=== PATIENT | female | born 1940 | race Caucasian/White ===

== ENCOUNTER → 2021-07-23 15:53 | Outpatient (BNVA) | payer MEDICARE, OTHER, SELFPAY | PROVIDERS: Family Provider Family Medicine; PCP Internal Medicine; Visit Provider Internal Medicine | DX: I25.10 Atherosclerotic heart disease of native coronary artery without angina pectoris (principal); I10 Essential (primary) hypertension; E78.5 Hyperlipidemia, unspecified; E11.9 Type 2 diabetes mellitus without complications; Z98.61 Coronary angioplasty status; Z79.84 Long term (current) use of oral hypoglycemic drugs | CPT/HCPCS: 36415; 80048; 83880; 99214 ==

== ENCOUNTER 2021-08-04 19:53 | Emergency (ER) | payer MEDICARE, OTHER, SELFPAY ==
[2021-08-04 20:17] VITALS: BP 156/75; PULSE 90; RESP 16; TEMP 36.3; O2SAT 94
--- NOTE | 2021-08-04 20:42 | XRR_ITS ---
PROCEDURE INFORMATION: Exam: XR Left Elbow Exam date and time: 08/04/2021 8:52 PM Age: 81 years old Clinical indication: Injury or trauma; Fall; Blunt trauma (contusions or hematomas); Left; Patient HX: Patient fell at home and hit elbow. C/O pain with swelling to posterior side of elbow. TECHNIQUE: Imaging protocol: XR Left elbow. Views: 3 or more views. COMPARISON: No relevant prior studies available. FINDINGS: Bones/joints: Normal. Soft tissues: Minimal distal triceps tendon degenerative calcification. Minimal degenerative calcification of the proximal radial and ulnar collateral ligaments suspected. XR/XR elbow LT min 3V* [id number] IMPRESSION: 1. No acute findings. 2. Minimal distal triceps tendon degenerative calcification. 3. Minimal degenerative calcification of the proximal radial and ulnar collateral ligaments suspected.
--- NOTE | 2021-08-04 21:03 | W.ED.EXTPRO ---
HPI - Extremity Problem General: Chief complaint: Extremity Injury, Upper Stated complaint: Fall Left Arm Injury Time Seen by Provider: 08/04/21 20:42 Source: patient Mode of arrival: ambulatory Limitations: no limitations History of Present Illness: 81-year-old female who states that she tripped and fell roughly 2 hours ago. States she fell straight onto her left elbow onto linoleum she does have a contusion states she has pain that she rates a 2 out of 10 she has full range of motion with minimal pain denies any other injuries denies hitting her head. Associated symptoms: Deny chest pain, fever(s) or rash Review of Systems Const: Denies: fever(s), chills, body aches or change in appetite Eyes: Denies: blurry vision or eye discomfort ENMT: Denies: throat pain or dental pain Card: Denies: chest pain Resp: Denies: dyspnea GI: Denies: abdominal pain, nausea, vomiting or diarrhea : Denies: dysuria Musc: Reports: extremity pain; Denies: neck pain or back pain Skin/Breast: Denies: rash Neuro: Denies: headache(s) Psych: Denies: depression Emile/Lymph: Denies: easy bruising All/Imm: Denies: urticaria PFSH ED PFSH: Medical History ASHD (arteriosclerotic heart disease) Diabetes Dyslipidemia (high LDL; low HDL) HTN (hypertension) Surgical History S/P PTCA (percutaneous transluminal coronary angioplasty) Family History Other CAD (coronary artery disease) Cancer Diabetes Hypertension Social History Smoking and tobacco status: never smoked Alcohol intake: never Household members: spouse Marital status: Physical Exam Const: COMMON NORMALS: no acute distress, patient oriented x3 and healthy appearing HENMT: COMMON NORMALS: normocephalic and atraumatic HEAD & SCALP: normocephalic and atraumatic Eye: COMMON NORMALS: Equal, round and reactive pupils present and EOMs intact bilaterally PUPIL: Yes Equal, round and reactive pupils present Neck/C-Spine: COMMON NORMALS: full ROM and supple Chest: COMMONS NORMALS: normal inspection of the chest and normal palpation of entire chest wall Resp: COMMON NORMALS: normal respiratory effort, No retractions, No use of accessory muscles and clear to auscultation bilaterally AUSCULTATION: clear to auscultation bilaterally Cardio: COMMON NORMALS: regular rate, regular rhythm and No murmurs present (Cardio) RATE: regular rate RHYTHM: regular rhythm GI: COMMON NORMALS: Normal to inspection, nondistended, normoactive bowel sounds present, Soft to palpation, non-tender and no masses PALPATION: Yes Soft to palpation Extremity: NARRATIVE EXTREMITY EXAM: Contusion to left elbow no obvious deformity he has full range of motion without pain Neuro: COMMON NORMALS: patient oriented x3, moves all extremities and no focal motor deficits Psych: COMMON NORMALS: mental status grossly normal, Normal thought process present and cooperative THOUGHT PROCESS: Normal thought process present Skin: COMMON NORMALS: no rashes or lesions noted and no wounds GENERAL SKIN EXAM: no rashes or lesions noted Course Vital Signs: Vital signs: Vital Signs Temperature 97.4 F L 08/04/21 20:17 Pulse Rate 90 08/04/21 20:17 Respiratory Rate 16 08/04/21 20:17 Blood Pressure 156/75 08/04/21 20:17 Pulse Oximetry 94 08/04/21 20:17 MDM - Extremity (Nontraumatic) Medical Decision Making Patient presents with an elbow contusion from a fall no signs of fracture she has full range of motion no other injuries she is stable for discharge follow-up PCP and return if worsening. Discharge Plan Discharge Patient Disposition: Home Clinical Impression: Fall, Contusion of elbow, left Condition: Stable Prescriptions: No Action amlodipine 5 mg tablet 5 mg PO DAILY 0RF nitroglycerin [Nitrostat] 0.4 mg tablet, sublingual 0.4 mg SUBLINGUAL Q5M PRN0RF Rx Instructions: do not exceed 3 doses per episode atorvastatin 40 mg tablet 40 mg PO DAILY 0RF clopidogrel 75 mg tablet 75 mg PO DAILY 0RF aspirin [Aspir-81] 81 mg tablet,delayed release (DR/EC) 81 mg PO DAILY 0RF montelukast 10 mg tablet 10 mg PO DAILY 0RF metoprolol succinate 25 mg tablet extended release 24 hr 50 mg PO DAILY 0RF metformin 1,000 mg tablet 1,500 mg PO BID 0RF cetirizine [Zyrtec] 10 mg tablet 10 mg PO DAILY PRN0RF pioglitazone 45 mg tablet 45 mg PO DAILY 0RF furosemide [Lasix] 20 mg tablet 20 mg PO BID Qty: 180 3RF Discharge Orders: Discharge ED (Routine); Ordered 08/04/21 Ordered By: Sima Green Referrals: Marco Ruiz MD [Primary Care Provider] - Discharge Diet: Advance as tolerated Discharge Activity: Resume usual activity Patient Instructions: Contusion in Adults (ED) Coding Level of Care Code ED Mine Utility Operator for Kayden Becker
== END 2021-08-04 21:28 | disposition home or self-care (01) ==
PROVIDERS: Emergency Provider Emergency Medicine; PCP Internal Medicine
DX: S50.02XA Contusion of left elbow, initial encounter (principal); W01.0XXA Fall on same level from slipping, tripping and stumbling without subsequent striking against object, initial encounter
CPT/HCPCS: 73080; 99283

== ENCOUNTER → 2021-10-22 15:00 | Outpatient (BNVA) | payer MEDICARE, OTHER, SELFPAY | PROVIDERS: PCP Internal Medicine; Visit Provider Internal Medicine | DX: I25.10 Atherosclerotic heart disease of native coronary artery without angina pectoris (principal); I10 Essential (primary) hypertension; E78.5 Hyperlipidemia, unspecified; E11.9 Type 2 diabetes mellitus without complications; Z79.84 Long term (current) use of oral hypoglycemic drugs; Z98.61 Coronary angioplasty status | CPT/HCPCS: 36415; 80048; 83880; 99213; 99214 ==

== ENCOUNTER 2022-01-04 14:56 | Outpatient (CLI) | payer MEDICARE, OTHER, SELFPAY ==
--- NOTE | 2022-01-04 15:15 | USCV_ITS ---
Della Dennis Age: 81 Gender: F : 1940 Exam Date: 01/04/2022 15:41 Ordering Phys: Leandro Perales M.D ([email or web address]) Technologist: Carmelina Wiseman [place] [facility] [place]: sob. edema BP: / HR: 76 Rhythm: Sinus Technical Quality: Good MEASUREMENTS (Male / Female) Normal Values 2D ECHO LV Diastolic Diameter PLAX 3.8 cm 4.2 - 5.9 / 3.9 - 5.3 cm LV Systolic Diameter PLAX 2.5 cm IVS Diastolic Thickness 1.6 cm 0.6 - 1.0 / 0.6 - 0.9 cm IVS Systolic Thickness 2.0 cm LVPW Diastolic Thickness 0.9 cm 0.6 - 1.0 / 0.6 - 0.9 cm LVPW Systolic Thickness 1.7 cm LVOT Diameter 2.1 cm LV Ejection Fraction 2D Teich 63.7 % LV Ejection Fraction MOD 2C 77.6 % LV Ejection Fraction 2C AL 80.3 % LA Diameter 3.7 cm LA Width 2.8 cm LA Height 5.2 cm RA Width 2.9 cm RA Height 4.5 cm Aorta at Sinotubular Diameter 2.6 cm IVC Diameter 1.2 cm M-MODE MV E Point Septal Separation 0.6 cm DOPPLER AV Peak Velocity 117.0 cm/s LVOT Peak Velocity 113.0 cm/s AV Area Cont Eq vti 3.3 cm squared AV Area Cont Eq pk 3.3 cm squared MV Peak Velocity 141.0 cm/s MV Area PHT 3.1 cm squared Mitral E to A Ratio 0.6 MV E' Velocity 43.0 cm/s Mitral E to MV E' Ratio 10.1 Mitral E to LV E' Lateral Ratio 14.0 Mitral E to LV E' Septal Ratio 7.9 TR Peak Velocity 186.0 cm/s TR Peak Gradient 13.8 mmHg Right Atrial Pressure 3.0 mmHg Pulmonary Artery Systolic Pressu 16.8 mmHg PV Peak Velocity 94.0 cm/s RV Acceleration Time 0.1 s RV Ejection Time 0.3 s RV AcT/ET 0.3 FINDINGS Left Ventricle Ventricle is normal in size. LV systolic function is normal with EF of 60 to 65%. No regional wall motion abnormalities are seen. Grade 1 diastolic dysfunction Right Ventricle RV is normal in size and function Right Atrium Normal in size Left Atrium Normal in size Mitral Valve Grossly normal. Trace mitral regurgitation Aortic Valve Structurally normal aortic valve. No significant stenosis or regurgitation. Tricuspid Valve Mild tricuspid regurgitation. Insufficient TR jet to calculate RVSP Pulmonic Valve Not well-visualized Pericardium Normal Aorta Normal in size IVC IVC appears to be normal CONCLUSIONS LV systolic function is normal with EF of 60 to 65%. Grade 1 diastolic dysfunction Trace mitral regurgitation Mild tricuspid regurgitation No comparison studies are available Leandro Perales MD (Electronically Signed) Final Date: 05 January 2022 17:19 S
== END 2022-01-04 14:57 | disposition home or self-care (01) ==
PROVIDERS: PCP Internal Medicine; Visit Provider Internal Medicine
DX: R06.02 Shortness of breath (principal); R60.0 Localized edema; I08.1 Rheumatic disorders of both mitral and tricuspid valves
CPT/HCPCS: 93306

== ENCOUNTER → 2022-05-11 16:32 | Outpatient (BNVA) | payer MEDICARE, OTHER, SELFPAY | PROVIDERS: PCP Internal Medicine; Visit Provider Nurse Practitioner Family | DX: I10 Essential (primary) hypertension (principal); I25.10 Atherosclerotic heart disease of native coronary artery without angina pectoris | CPT/HCPCS: 36415; 80048; 83880; 99214 ==

== ENCOUNTER 2022-05-31 12:38 | Observation (INO) | payer MEDICARE, OTHER, SELFPAY ==
[2022-05-31] VITALS (17 sets, daily range): BP systolic 115–148; BP diastolic 67–80; PULSE 79–96; RESP 14–23; TEMP 36.4–37.2; O2SAT 90–96; BMI 28.3
--- NOTE | 2022-05-31 12:51 | W.ED.GENADLT ---
HPI - General Adult General: Chief complaint: Weakness Stated complaint: weakness, flu like symptoms Time Seen by Provider: 05/31/22 12:50 History of Present Illness: Ms. Dennis is an 82-year-old lady with history of hypertension, hyperlipidemia, diabetes, history of PCI for CAD, dementia presenting to the emergency department accompanied by her daughter for generalized illness. She reports gradual onset approximately 1 week ago. She endorses cough which is productive and green sputum in addition to generalized weakness, malaise, poor p.o. intake, and bilateral thigh region aching. Intensity symptoms moderate. No other specific changes in health, exacerbating, or alleviating factors identified. Onset (ago): day(s) Location: chest and lower extremity Severity: moderate Quality: aching Pain Consistency: constant Relieving factors: none Exacerbating factors: movement Associated symptoms: Reports cough and weakness Review of Systems General: Reports: 10 or more systems reviewed and unremarkable except in HPI and below PFSH ED PFSH: Medical History (Updated 06/02/22 @ 00:01 by ANDREZ Rea) Abnormal CPK ASHD (arteriosclerotic heart disease) Dehydration Diabetes Dyslipidemia (high LDL; low HDL) HTN (hypertension) Hypokalemia Rhabdomyolysis Transaminitis Surgical History S/P PTCA (percutaneous transluminal coronary angioplasty) Family History Other CAD (coronary artery disease) Cancer Diabetes Hypertension Social History Smoking and tobacco status: never smoked Alcohol intake: never Household members: spouse Marital status: Physical Exam Const: COMMON NORMALS: alert GENERAL APPEARANCE: cooperative and well developed HENMT: COMMON NORMALS: normocephalic and atraumatic HEAD & SCALP: normocephalic and atraumatic Eye: COMMON NORMALS: conjunctivae normal CONJUNCTIVA: Yes conjunctivae normal SCLERA: sclerae normal Neck/C-Spine: COMMON NORMALS: supple GENERAL: Yes trachea midline Resp: COMMON NORMALS: clear to auscultation bilaterally EFFORT & INSPECTION: Yes able to speak in complete sentences AUSCULTATION: clear to auscultation bilaterally Cardio: COMMON NORMALS: regular rate and regular rhythm RATE: regular rate RHYTHM: regular rhythm GI: COMMON NORMALS: Soft to palpation PALPATION: Yes Soft to palpation and No Tenderness to palpation present (GI) Extremity: GENERAL: Yes normal exam except as noted and No edema Neuro: COMMON NORMALS: moves all extremities SENSORIUM/ORIENTATION: Yes alert and Yes Orientation impaired Psych: COMMON NORMALS: mental status grossly normal and Normal thought process present THOUGHT PROCESS: Normal thought process present Course Vital Signs: Vital signs: Vital Signs Temperature 98.8 F 06/01/22 12:23 Pulse Rate 65 06/01/22 12:23 Respiratory Rate 15 06/01/22 12:23 Blood Pressure 114/61 06/01/22 12:23 Pulse Oximetry 94 06/01/22 12:23 Oxygen Delivery Me thod 06/01/22 08:00 MDM - General Adult Medical Decision Making 82-year-old lady presenting with respiratory symptoms. Patient has altered mental status, reportedly baseline, with no focal neurologic deficits appreciated. EKG notable for sinus rhythm with occasional PVC, normal axis and short MD interval, no STEMI. Labs demonstrate no leukocytosis, hemoglobin mildly decreased though no recent comparison available. Metabolic panel with likely dehydration including hypokalemia and hyponatremia. Mild transaminitis and CK is elevated. Negative range 2-hour delta troponin. Viral panel and urine are pending. Physical exam reveals no skin changes or other acute abnormalities associated with the patient's region of myalgias. Distal CMS is intact. Chest x-ray with no lobar consolidation or pneumothorax. During ED course patient treated with potassium replenishment and IV fluids. Most likely etiology of patient's symptoms is dehydration with evidence of rhabdomyolysis without certain etiology, perhaps a viral myositis is present. The results of ED evaluation were discussed with the patient including plan for admission due to requirement for level of care not available if discharged to prevent significant worsening/deterioration. Patient agreeable with plan. Discussed with hospitalist service who was agreeable to admit patient. Medical Records I reviewed the patient's medical records. Lab Data I reviewed the patient's lab results. 06/01/22 05:13 06/01/22 05:13 Radiology Impressions Chest X-Ray 05/31/22 13:06 IMPRESSION: No sign of pneumonia. Laboratory Results WBC 7.1 10^3/uL (4.0-10.0) 05/31/22 13:45 RBC 3.35 10^6/uL (4.1-5.3) L 05/31/22 13:45 Hgb 10.3 g/dL (11.5-15.3) L 05/31/22 13:45 Hct 32.2 % (37.0-47.0) L 05/31/22 13:45 MCV 96.1 fl (81-99) 05/31/22 13:45 MCH 30.7 pg (28.0-34.0) 05/31/22 13:45 MCHC 32.0 g/dL (30.0-36.0) 05/31/22 13:45 RDW 13.0 % (12.1-15.1) 05/31/22 13:45 Plt Count 221 10^3/cmm (130-400) 05/31/22 13:45 MPV 11.5 fL (7.4-10.4) H 05/31/22 13:45 Neut % (Auto) 58.0 % 05/31/22 13:45 Lymph % (Auto) 23.8 % 05/31/22 13:45 [place] % (Auto) 16.1 % 05/31/22 13:45 Eos % (Auto) 1.1 % 05/31/22 13:45 Baso % (Auto) 0.4 % 05/31/22 13:45 Neut # (Auto) 4.12 10^3/uL (1.8-7.7) 05/31/22 13:45 Lymph # (Auto) 1.7 10^3/uL (0.8-4.8) 05/31/22 13:45 [place] # (Auto) 1.1 10^3/uL (0.2-0.9) H 05/31/22 13:45 Eos # (Auto) 0.1 10^3/uL (0.0-0.8) 05/31/22 13:45 Baso # (Auto) 0.0 10^3/uL (0.0-0.1) 05/31/22 13:45 Nucleated RBC % (auto) 0 % 05/31/22 13:45 Nucleated RBCs # 0.0 /100WBC 05/31/22 13:45 ESR 67 mm/hr (0-15) H 05/31/22 13:45 Sodium 135 mmol/L (136-145) L 05/31/22 13:45 Potassium 3.2 mmol/L (3.5-5.1) L 05/31/22 13:45 Chloride 96 mmol/L (98-107) L 05/31/22 13:45 Carbon Dioxide 25 mmol/L (22-29) 05/31/22 13:45 Anion Gap 17.2 (5-19) 05/31/22 13:45 BUN 21 mg/dL (8-23) 05/31/22 13:45 Creatinine 0.7 mg/dL (0.5-0.9) 05/31/22 13:45 GFR Calculation Not Reportable 05/31/22 13:45 Glucose 149 mg/dL (65-115) H 05/31/22 13:45 Calculated Osmolality 286 mOsm/kg (285-295) 05/31/22 13:45 Calcium 9.1 mg/dL (8.5-10.5) 05/31/22 13:45 Total Bilirubin 0.4 mg/dL (0.15-1.2) 05/31/22 13:45 AST 79 U/L (0-32) H 05/31/22 13:45 ALT 39 U/L (0-33) H 05/31/22 13:45 Alkaline Phosphatase 54 U/L (35-105) 05/31/22 13:45 Creatine Kinase 4512 U/L (26-192) H* 05/31/22 13:45 Troponin T Baseline 16 ng/L (0-10) H 05/31/22 13:45 Total Protein 6.9 g/dL (6.6-8.7) 05/31/22 13:45 Albumin 3.3 g/dL (3.5-5.2) L 05/31/22 13:45 Globulin 3.6 g/dL (1.3-4.6) 05/31/22 13:45 Procalcitonin 0.15 ng/mL (0-0.5) 05/31/22 13:45 TSH 1.32 uIU/mL (0.27-4.20) 05/31/22 13:45 Urine Color Yellow (Yellow) 05/31/22 14:36 Urine Appearance Hazy (CLEAR) A 05/31/22 14:36 Urine pH 5 (5-7) 05/31/22 14:36 Ur Specific [place] 1.020 (1.005-1.030) 05/31/22 14:36 Urine Protein Neg (Negative) 05/31/22 14:36 Urine Glucose (UA) Norm (Normal) 05/31/22 14:36 Urine Ketones 1+ (Negative) H 05/31/22 14:36 Urine Blood 2+ (Negative) H 05/31/22 14:36 Urine Nitrate Negative (Negative) 05/31/22 14:36 Urine Bilirubin Neg (Negative) 05/31/22 14:36 Urine Urobilinogen Norm mg/dL (Negative) 05/31/22 14:36 Ur Leukocyte Esterase 1+ (Negative) H 05/31/22 14:36 Urine RBC 0-4 /hpf (0-2) H 05/31/22 14:36 Urine WBC 10-15 /hpf (0-5) H 05/31/22 14:36 Ur Squamous Epith Cells 5-10 /hpf (0-5) H 05/31/22 14:36 Amorphous Sediment 2+ /hpf 05/31/22 14:36 Urine Bacteria 1+ /hpf (NONE) H 05/31/22 14:36 Urine Mucus 2+ /hpf 05/31/22 14:36 Nasal Influ A H1 2008 PCR Not detected (NOT DETECT) 05/31/22 15:03 Adenovirus (PCR) Not detected (NOT DETECT) 05/31/22 15:03 C. pneumoniae DNA (PCR) Not detected (NOT DETECT) 05/31/22 15:03 Coronavirus 229E (PCR) Not detected (NOT DETECT) 05/31/22 15:03 Human Metapneumovir PCR Not detected (NOT DETECT) 05/31/22 15:03 Influenza A (H1) PCR Not detected (NOT DETECT) 05/31/22 15:03 Influenza A (H3) PCR Not detected (NOT DETECT) 05/31/22 15:03 Influenza Type A (PCR) Not detected (NOT DETECT) 05/31/22 15:03 Influenza Type B (PCR) Not detected (NOT DETECT) 05/31/22 15:03 M. pneumoniae (PCR) Not detected (NOT DETECT) 05/31/22 15:03 Parainfluenza 1 (PCR) Not detected (NOT DETECT) 05/31/22 15:03 Parainfluenza 2 (PCR) Not detected (NOT DETECT) 05/31/22 15:03 Parainfluenza 3 (PCR) Not detected (NOT DETECT) 05/31/22 15:03 Parainfluenza 4 (PCR) Not detected (NOT DETECT) 05/31/22 15:03 RSV Type A (PCR) Not detected (NOT DETECT) 05/31/22 15:03 RSV Type B (PCR) Not detected (NOT DETECT) 05/31/22 15:03 Entero/Rhino (PCR) Not detected (NOT DETECT) 05/31/22 15:03 SARS-CoV-2 (PCR) Not detected (NOT DETECT) 05/31/22 15:03 Discharge Plan Discharge Patient Disposition: Admitted As Inpatient Admit Provider: Jose Petty Clinical Impression: Rhabdomyolysis, Dehydration, Hypokalemia, Transaminitis Condition: Stable Coding Level of Care Code ED Threshing Machine Operator for Kayden Becker
--- NOTE | 2022-05-31 13:06 | XRR_ITS ---
PROCEDURE INFORMATION: Exam: XR Chest Exam date and time: 05/31/2022 1:20 PM Age: 82 years old Clinical indication: Cough; Prior surgery; Surgery type: Stents; Patient HX: Flu like symptoms TECHNIQUE: Imaging protocol: Radiologic exam of the chest. Views: 1 view. COMPARISON: No relevant prior studies available. FINDINGS: Lungs: No focal peripheral lung consolidation, air bronchogram formation, or silhouette sign. Pleural spaces: No pleural effusion or pneumothorax. Heart/Mediastinum: The cardiac silhouette is not enlarged. The mediastinal contours are normal. Bones/joints: There are multilevel bridging osteophytes in the spine. XR/XR chest 1V portable [id number] IMPRESSION: No sign of pneumonia.
[2022-05-31] MEDS: sodium chloride 0.9% 1,000 ML 999 ML IV (13:43)
--- NOTE | 2022-05-31 13:44 | ECG_ITS ---
[facility] Test Date: 2022-05-31 Pat Name: Della Dennis Department: Room: Gender: Female Aircraft Metalsmith: : 1940 Requested By: Abdoul Neal Order Number: [id number] Eva MD: Leandro Perales M.D. Measurements Intervals [place] Rate: 82 P: 16 NM: 119 QRS: 29 QRSD: 81 T: 110 QT: 377 QTc: 442 Interpretive Statements SINUS RHYTHM WITH SHORT NM INTERVAL WITH OCCASIONAL VENTRICULAR PREMATURE COMPLEXES LOW QRS VOLTAGE IN PRECORDIAL LEADS [QRS DEFLECTION < 1.0 mV IN CHEST LEADS] POSSIBLE ANTERIOR MYOCARDIAL INFARCTION , PROBABLY OLD [30 ms Q WAVE IN V3/V4, OR R < 0.2 mV IN V4] No previous ECG available for comparison Electronically Signed On 05-31-2022 14:26:48 SURFACE ROOM SHOP OPTICIAN by Leandro Perales M.D. [id number]
[2022-05-31 13:56] LABS: Basophils % 0.4 %; Eosinophils # 0.1 10^3/uL (0.0-0.8); Eosinophils % 1.1 %; Hematocrit 32.2 % (37.0-47.0); Hemoglobin 10.3 g/dL (11.5-15.3); Lymphocytes # 1.7 10^3/uL (0.8-4.8); Lymphocytes % 23.8 %; Mean Corpuscular Hemoglobin 30.7 pg (28.0-34.0); Mean Corpuscular Volume 96.1 fl (81-99); Mean Platelet Volume 11.5 fL (7.4-10.4); Monocytes # 1.1 10^3/uL (0.2-0.9); Monocytes % 16.1 %; Neutrophils # 4.12 10^3/uL (1.8-7.7); Nucleated Red Blood Cells % 0 %; Platelet Count 221 10^3/cmm (130-400); Red Blood Count 3.35 10^6/uL (4.1-5.3); White Blood Count 7.1 10^3/uL (4.0-10.0)
[2022-05-31 14:17] LABS: Troponin(5th) Baseline 16 ng/L (0-10)
[2022-05-31 14:27] LABS: Alanine Aminotransferase 39 U/L (0-33); Albumin Level 3.3 g/dL (3.5-5.2); Alkaline Phosphatase 54 U/L (35-105); Aspartate Amino Transferase 79 U/L (0-32); Blood Urea Nitrogen 21 mg/dL (8-23); Calcium 9.1 mg/dL (8.5-10.5); Carbon Dioxide 25 mmol/L (22-29); Chloride 96 mmol/L (98-107); Globulin 3.6 g/dL (1.3-4.6); Glucose 149 mg/dL (65-115); Osmolality Calculated 286 mOsm/kg (285-295); Sodium 135 mmol/L (136-145); Thyroid Stimulating Hormone 1.32 uIU/mL (0.27-4.20); Total Bilirubin 0.4 mg/dL (0.15-1.2); Total Protein 6.9 g/dL (6.6-8.7)
[2022-05-31 14:31] LABS: Anion Gap 17.2 (5-19); Potassium 3.2 mmol/L (3.5-5.1)
[2022-05-31] MEDS: potassium chloride ER 20 mEq Tablet 40 MEQ PO (14:37)
[2022-05-31 14:43] LABS: Creatine Phosphokinase 4512 U/L (26-192)
[2022-05-31 14:56] LABS: Urine Appearance Hazy (CLEAR); Urine Color Yellow (Yellow)
[2022-05-31 14:57] LABS: Add Urine Microscopic? YES; Amorphous Sediment Urine 2+ /hpf; Bacteria Urine 1+ /hpf; Bilirubin Urine Neg (Negative); Blood Urine 2+ (Negative); Glucose Urine UA Norm (Normal); Ketones Urine 1+ (Negative); Leukocyte Esterase Urine 1+ (Negative); Mucus Urine 2+ /hpf; Nitrate Urine Negative (Negative); Protein Urine Neg (Negative); RBC Urine 0-4 /hpf (0-2); Urobilinogen Urine Norm (Negative); pH Urine 5 (5-7)
[2022-05-31 14:58] LABS: Add Urine Culture? Yes
--- NOTE | 2022-05-31 15:06 | ECG_ITS ---
[facility] Test Date: 2022-05-31 Pat Name: Della Dennis Department: Room: Gender: Female Hand Alterations Seamstress: : 1940 Requested By: Abdoul Neal Order Number: [id number] Eva MD: Leandro Perales M.D. Measurements Intervals [place] Rate: 83 P: 14 [place]: 122 QRS: 37 QRSD: 81 T: 132 QT: 357 QTc: 421 Interpretive Statements SINUS RHYTHM WITH OCCASIONAL VENTRICULAR PREMATURE COMPLEXES LOW QRS VOLTAGE IN PRECORDIAL LEADS [QRS DEFLECTION < 1.0 mV IN CHEST LEADS] NONSPECIFIC ST & T-WAVE ABNORMALITY Compared to ECG 05/31/2022 13:44:11 Ventricular premature complex(es) now present T-wave abnormality now present Short [place] interval no longer present Myocardial infarct finding no longer present Electronically Signed On 05-31-2022 16:45:00 COMBINING MACHINE OPERATOR by Leandro Perales M.D. [id number]
[2022-05-31 15:20] LABS: Erythrocyte Sedimentation Rate 67 mm/hr (0-15)
--- NOTE | 2022-05-31 15:37 | PM.HP ---
Providers/Chief Complaint Primary Care Provider: Marco Ruiz MD Chief Complaint: weakness, flu like symptoms History of Present Illness Della Dennis is a 82 year old female presenting from home with chief complaint generalized weakness, she is endorsing proximal muscle weakness, she has not endorsed any chest pain, fever nausea vomiting diarrhea or recent falls. She is independently living at home with her daughter. Does not use oxygen No history of polymyalgia rheumatica, fibromyalgia, patient is in good health, takes metformin for diabetes on atorvastatin as well In the ER she has been diagnosed with mild muscle injury I will hold her atorvastatin Review of Systems Const: Denies: fever(s) Eyes: Denies: change in vision ENMT: Denies: throat pain Card: Denies: chest pain Resp: Denies: dyspnea GI: Denies: abdominal pain : Denies: flank pain Musc: Denies: neck pain Skin/Breast: Denies: rash Neuro: Denies: headache(s) Psych: Denies: anxiety Endo: Denies: polyuria Emile/Lymph: Denies: easy bruising All/Imm: Denies: urticaria Medications/Allergies Home Medications Medication Instructions Recorded Confirmed Last Taken Type amlodipine 5 mg tablet 5 mg PO DAILY 08/29/19 05/11/22 Unknown History aspirin 81 mg tablet,delayed 81 mg PO DAILY 08/29/19 05/11/22 Unknown History release (Aspir-) atorvastatin 40 mg tablet 40 mg PO DAILY 08/29/19 05/11/22 Unknown History clopidogrel 75 mg tablet 75 mg PO DAILY 08/29/19 05/11/22 Unknown History montelukast 10 mg tablet 10 mg PO DAILY 08/29/19 05/11/22 Unknown History nitroglycerin 0.4 mg sublingual 0.4 mg sublingual Q5M PRN 08/29/19 05/11/22 Unknown History tablet (Nitrostat) metoprolol succinate 25 mg 50 mg PO DAILY 07/24/20 05/11/22 Unknown History tablet,extended release 24 hr metformin 1,000 mg tablet 1,500 mg PO BID 07/23/21 05/11/22 Unknown History pioglitazone 45 mg tablet 45 mg PO DAILY 07/23/21 05/11/22 Unknown History furosemide 20 mg tablet (Lasix) 20 mg PO BID #180 tabs 07/29/21 05/11/22 Unknown Rx donepezil 5 mg tablet 5 mg PO DAILY 05/11/22 05/11/22 Unknown History Allergies Allergy/AdvReac Type Severity Reaction Status Date / Time No Known Allergies Allergy Verified 10/22/21 15:28 PFSH Acute PFSH: Medical History (Updated 05/31/22 @ 19:43 by Jose Petty MD) ASHD (arteriosclerotic heart disease) Diabetes Dyslipidemia (high LDL; low HDL) HTN (hypertension) Surgical History S/P PTCA (percutaneous transluminal coronary angioplasty) Family History Other CAD (coronary artery disease) Cancer Diabetes Hypertension Social History Smoking and tobacco status: never smoked Alcohol intake: never Household members: spouse Marital status: Vitals/I&O/Wt Last Vital Signs Temp 99.0 F 05/31/22 12:49 Pulse 86 05/31/22 12:49 Resp 19 H 05/31/22 12:49 BP 125/75 05/31/22 12:49 Pulse Ox 90 05/31/22 12:49 Weight last 48 hrs Weight 77.111 kg Physical Exam Narrative: Awake alert Nonfocal neuro exam GCS 15 Euvolemic Pleasant cooperative Currently on room air S1, S2 Abdomen soft GCS 15 EOMI, PERRLA No significant proximal weakness on clinical exam Data 05/31/22 13:45 05/31/22 13:45 A&P Assessment and plan (1) Abnormal CPK: (2) Rhabdomyolysis: (3) Dehydration: (4) Hypokalemia: (5) Transaminitis: (6) Diabetes: Plan Mild muscle injury Mild rhabdomyolysis Continue IV fluids Discontinue atorvastatin Check ESR and MERE No clinical signs of polymyalgia rheumatica or temporal arteritis Normal TSH Dehydration with hypokalemia, Electrolytes replenished continue IV fluids overnight Full code Anticipate discharge within 48 hours Abnormal UA with bacteriuria Check urine culture Diabetic: Mild sliding scale Attestations Medical Necessity Statement*: Anticipating within 48 hours Diagnoses Abnormal CPK R74.8 Rhabdomyolysis M62.82 Dehydration E86.0 Hypokalemia E87.6 Transaminitis R74.01 Diabetes E11.9
[2022-05-31 16:26] LABS: Procalcitonin 0.15 ng/mL (0-0.5)
[2022-05-31 16:51] LABS: Troponin 5 2HR 16.42 ng/L (0-10)
[2022-05-31 16:53] LABS: Troponin 5 2HR Delta 0.42 ABS# (0-10)
--- NOTE | 2022-05-31 17:01 | PC.NURSE ---
REPORT CALLED TO TONYA VALERIO ON MED SURG
[2022-05-31 17:07] LABS: Adenovirus Not Detected (NOT DETECT); Chlamydia Pneumoniae Not Detected (NOT DETECT); Coronavirus 229E,HKU1,NL63,OC4 Not Detected (NOT DETECT); Human Metapneumovirus Not Detected (NOT DETECT); Human Rhinovirus/Enterovirus Not Detected (NOT DETECT); Influenza A Not Detected (NOT DETECT); Influenza A H1 Not Detected (NOT DETECT); Influenza A H1-2009 Not Detected (NOT DETECT); Influenza A H3 Not Detected (NOT DETECT); Influenza B Not Detected (NOT DETECT); Mycoplasma Pneumoniae Not Detected (NOT DETECT); Parainfluenza Virus Type 1 Not Detected (NOT DETECT); Parainfluenza Virus Type 2 Not Detected (NOT DETECT); Parainfluenza Virus Type 3 Not Detected (NOT DETECT); Parainfluenza Virus Type 4 Not Detected (NOT DETECT); Respiratory Syncytial Virus A Not Detected (NOT DETECT); Respiratory Syncytial Virus B Not Detected (NOT DETECT); SARS-COV-2 Not Detected (NOT DETECT)
[2022-05-31] MEDS: sodium chloride 0.9% 1,000 ML 75 ML IV (18:39)
[2022-05-31 18:41] LABS: Glucose Point of Care 148 mg/dL (70-110)
--- NOTE | 2022-05-31 18:45 | PC.NURSE ---
Notified Dr. Petty patient refused heparin
--- NOTE | 2022-05-31 19:06 | ECG_ITS ---
[facility] Test Date: 2022-05-31 Pat Name: Della Dennis Department: Room: 269 Gender: Female Ladler: : 1940 Requested By: Abdoul Neal Order Number: [id number] Reading MD: Regan Hair M.D. Measurements Intervals [place] Rate: 93 P: 26 PA: 137 QRS: 24 QRSD: 78 T: 129 QT: 319 QTc: 397 Interpretive Statements SINUS RHYTHM WITH OCCASIONAL VENTRICULAR PREMATURE COMPLEXES LOW QRS VOLTAGE IN PRECORDIAL LEADS [QRS DEFLECTION < 1.0 mV IN CHEST LEADS] POSSIBLE ANTERIOR MYOCARDIAL INFARCTION , PROBABLY OLD [30 ms Q WAVE IN V3/V4, OR R < 0.2 mV IN V4] Compared to ECG 05/31/2022 15:41:49 Myocardial infarct finding now present T-wave abnormality no longer present Electronically Signed On 06-01-2022 18:20:19 [employer] [employer] by Regan Hair M.D. [id number]
[2022-05-31 20:40] LABS: Troponin 5 6HR 16.06 ng/L (0-10)
[2022-05-31 20:41] LABS: Troponin 5 6HR Delta 0.06 ng/L (0-12)
[2022-05-31 20:48] LABS: Glucose Point of Care 268 mg/dL (70-110)
[2022-05-31 21:43] LABS: Estmated Average Glucose 126
[2022-05-31 22:52] LABS: Vitamin B12 198 pg/mL (232-1245)
[2022-06-01] VITALS: BP 129/53; PULSE 84; RESP 16; TEMP 36.9; O2SAT 93
[2022-06-01 04:00] VITALS: BP 129/73; PULSE 84; RESP 17; TEMP 36.6; O2SAT 94
[2022-06-01 05:46] LABS: Basophils % 0.2 %; Hematocrit 29.7 % (37.0-47.0); Hemoglobin 9.6 g/dL (11.5-15.3); Lymphocytes # 1.4 10^3/uL (0.8-4.8); Lymphocytes % 24.5 %; Mean Corpuscular HGB Conc 32.3 g/dL (30.0-36.0); Mean Corpuscular Volume 95.8 fl (81-99); Mean Platelet Volume 11.3 fL (7.4-10.4); Monocytes # 0.3 10^3/uL (0.2-0.9); Monocytes % 5.4 %; Nucleated Red Blood Cells % 0 %; Platelet Count 218 10^3/cmm (130-400); Red Cell Distribution Width 13.2 % (12.1-15.1); White Blood Count 5.5 10^3/uL (4.0-10.0)
[2022-06-01 06:07] LABS: Anion Gap 15.9 (5-19); Blood Urea Nitrogen 16 mg/dL (8-23); C Reactive Protein 88.2 mg/L (0.0-4.9); Calcium 8.5 mg/dL (8.5-10.5); Carbon Dioxide 24 mmol/L (22-29); Chloride 102 mmol/L (98-107); Glucose 252 mg/dL (65-115); Magnesium 1.8 mg/dL (1.7-2.3); Osmolality Calculated 296 mOsm/kg (285-295); Potassium 3.9 mmol/L (3.5-5.1); Sodium 138 mmol/L (136-145)
[2022-06-01] MEDS: heparin 5,000 unit/mL INJ 1 mL 5000 UNIT SUBCUT (06:19)
[2022-06-01 06:30] LABS: Creatine Phosphokinase 2477 U/L (26-192)
[2022-06-01 06:33] LABS: Glucose Point of Care 243 mg/dL (70-110)
[2022-06-01] MEDS: sodium chloride 0.9% 1,000 ML 75 ML IV (07:08)
[2022-06-01 08:00] VITALS: BP 114/61; PULSE 63; PULSE 65; RESP 15; RESP 18; TEMP 37.1; O2SAT 90; O2SAT 94
[2022-06-01] MEDS: insulin lispro 100 unit/1 mL SUBCUT (08:47)
[2022-06-01] MEDS: metoprolol succinate ER (24 HR) 25 mg Tablet 50 MG PO (08:48)
[2022-06-01] MEDS: potassium chloride ER 20 mEq Tablet PO (08:48)
[2022-06-01] MEDS: aspirin 81 mg EC Tablet PO (08:49)
[2022-06-01] MEDS: donepezil 5 MG Tablet PO (08:49)
--- NOTE | 2022-06-01 09:03 | PC.NURSE ---
Patient wanted to hold solumedrol until the physician visits with patient and daughter.
--- NOTE | 2022-06-01 10:39 | PC.CHAP ---
Pastoral Care Encounter/Spiritual Assessment Type of Contact [] Declined real estate services administrator visit [] Patient/Family/Request visit [] Outpatient visit [] Follow-up visit [] Physician referral [] Code/Alert [x] Routine visit [] Staff referral [] Actively dying [] Patient sleeping [x] Family support [] [] Out of room [] Palliative care [] [] Receiving care in room [] Pre-surgical visit [] Trauma [] Long length of stay [] ICU visit [] Other: Relational/Emotional Strength [x] Patient feels connected with others/family/visitors/staff [] Distress [] Loneliness/isolation [] Abandonment Spirituality of Patient [x] Person of Jillian [] Attends Zoroastrian of their Jillian [x] Believes in Prayer [] Reads Bible or Anglican materials [] There are Spiritual issues to be addressed Commissioning Agent Interventions [x] Prayer [x] Active listening [] Non-anxious presence [x] Spiritual/emotional support [] Crisis/trauma care [] Spiritual counseling [] Bereavement support [] Provided bereavement packet [] Provided Bible/devotional materials [] Provided toy/stuffed animal, coloring book to patient or family member [] Provided Communion [] Anointing/[place] [] Salvation [x] Completed spiritual assessment [] Other: Impact on Illness or Injury [] Angry [] Fearful [] Anxious [] Often cries [] Exhaustion [] Unable to work [] Unable to attend yarsani [] Unable to walk/stand [] Unable to read [] Unable to drive [] Unable to eat/drink [] Unable to sleep [] Unable to be with family [] Patient intubated [] Other: Summary Time spent with patient
--- NOTE | 2022-06-01 10:41 | P.DS_ITS ---
Discharge Providers Date of Admission: 05/31/22 15:05 Date of Discharge: June 01, 2022 Attending Provider at Admission: Jose Petty MD Attending Provider at Discharge: Jose Petty MD Primary Care Provider: Marco Ruiz MD Diagnoses at Discharge Discharge Diagnosis (1) Abnormal CPK: Status: Acute (2) Rhabdomyolysis: Status: Acute (3) Dehydration: Status: Acute (4) Hypokalemia: Status: Acute (5) Transaminitis: Status: Acute (6) Diabetes: Status: Acute Reason for Visit Reason for Visit: weakness, flu like symptoms Hospital Course Hospital Course 82-year-old female who was admitted for generalized weakness and fatigue, has history of coronary disease take aspirin Plavix and statin, her CPK was around 4500 which transition down to 2400 at the time of discharge, she remained hemodynamically stable, worked with PT, we have recommended outpatient physical therapy most likely her muscle injury related to statin intolerance and low vitamin B12, she received 1 intramuscular injection of B12 in the hospital I will give her 2000 mcg of vitamin B12 for the next 90 days, patient was with her daughter, normal TSH, ESR 67, she does not have typical signs of polymyalgia rheumatica or temporal arteritis TSH is normal clinically doing very well. Urinalysis consistent with UTI however she does not have any active symptoms. She will be discharged on cefpodoxime 5-day regimen Physical Exam Narrative: Nonfocal neuro exam Awake and alert GCS 15 Abdomen soft S1, S2 Currently on room air Discharge Data Studies Completed and Pending Completed Studies During Hospitalization Category Date Time Status XR chest 1V portable [id number] Stat Exams 05/31/22 13:06 Completed Pending at discharge Category Date Time Status MERE Profile Custom [[facility] Profile] Stat Lab 05/31/22 20:00 Received CPK [Creatine Phosphokinase] AM LABS Lab 06/02/22 04:00 Ordered CPK [Creatine Phosphokinase] AM LABS Lab 06/03/22 04:00 Ordered Urine Culture Stat Lab 05/31/22 14:36 Received Radiology Impressions Chest X-Ray 05/31/22 13:06 IMPRESSION: No sign of pneumonia. Laboratory Results WBC 5.5 10^3/uL (4.0-10.0) 06/01/22 05:13 RBC 3.10 10^6/uL (4.1-5.3) L 06/01/22 05:13 Hgb 9.6 g/dL (11.5-15.3) L 06/01/22 05:13 Hct 29.7 % (37.0-47.0) L 06/01/22 05:13 MCV 95.8 fl (81-99) 06/01/22 05:13 MCH 31.0 pg (28.0-34.0) 06/01/22 05:13 MCHC 32.3 g/dL (30.0-36.0) 06/01/22 05:13 RDW 13.2 % (12.1-15.1) 06/01/22 05:13 Plt Count 218 10^3/cmm (130-400) 06/01/22 05:13 MPV 11.3 fL (7.4-10.4) H 06/01/22 05:13 Neut % (Auto) 69.0 % 06/01/22 05:13 Lymph % (Auto) 24.5 % 06/01/22 05:13 [place] % (Auto) 5.4 % 06/01/22 05:13 Eos % (Auto) 0.0 % 06/01/22 05:13 Baso % (Auto) 0.2 % 06/01/22 05:13 Neut # (Auto) 3.80 10^3/uL (1.8-7.7) 06/01/22 05:13 Lymph # (Auto) 1.4 10^3/uL (0.8-4.8) 06/01/22 05:13 [place] # (Auto) 0.3 10^3/uL (0.2-0.9) 06/01/22 05:13 Eos # (Auto) 0.0 10^3/uL (0.0-0.8) 06/01/22 05:13 Baso # (Auto) 0.0 10^3/uL (0.0-0.1) 06/01/22 05:13 Nucleated RBC % (auto) 0 % 06/01/22 05:13 Nucleated RBCs # 0.0 /100WBC 06/01/22 05:13 ESR 67 mm/hr (0-15) H 05/31/22 13:45 Sodium 138 mmol/L (136-145) 06/01/22 05:13 Potassium 3.9 mmol/L (3.5-5.1) 06/01/22 05:13 Chloride 102 mmol/L (98-107) 06/01/22 05:13 Carbon Dioxide 24 mmol/L (22-29) 06/01/22 05:13 Anion Gap 15.9 (5-19) 06/01/22 05:13 BUN 16 mg/dL (8-23) 06/01/22 05:13 Creatinine 0.7 mg/dL (0.5-0.9) 06/01/22 05:13 GFR Calculation Not Reportable 06/01/22 05:13 Glucose 252 mg/dL (65-115) H 06/01/22 05:13 POC Glucose 243 mg/dL (70-110) H 06/01/22 06:26 Estimat Average Glucose 126 05/31/22 20:00 Hemoglobin A1c 6.0 % (4.0-6.0) 05/31/22 20:00 Calculated Osmolality 296 mOsm/kg (285-295) H 06/01/22 05:13 Calcium 8.5 mg/dL (8.5-10.5) 06/01/22 05:13 Phosphorus 3.0 mg/dL (2.5-4.5) 06/01/22 05:13 Magnesium 1.8 mg/dL (1.7-2.3) 06/01/22 05:13 Total Bilirubin 0.4 mg/dL (0.15-1.2) 05/31/22 13:45 AST 79 U/L (0-32) H 05/31/22 13:45 ALT 39 U/L (0-33) H 05/31/22 13:45 Alkaline Phosphatase 54 U/L (35-105) 05/31/22 13:45 Creatine Kinase 2477 U/L (26-192) H* 06/01/22 05:13 Troponin T Baseline 16 ng/L (0-10) H 05/31/22 13:45 Troponin T 120 Minute 16.42 ng/L (0-10) H 05/31/22 16:22 Delta Troponin T 0.42 ABS# (0-10) 05/31/22 16:22 Troponin T Hi Sens 6Hr 16.06 ng/L (0-10) H 05/31/22 20:00 Troponin T Hi Sens 6Hr Delta 0.06 ng/L (0-12) 05/31/22 20:00 C-Reactive Protein 88.2 mg/L (0.0-4.9) H 06/01/22 05:13 Total Protein 6.9 g/dL (6.6-8.7) 05/31/22 13:45 Albumin 3.3 g/dL (3.5-5.2) L 05/31/22 13:45 Globulin 3.6 g/dL (1.3-4.6) 05/31/22 13:45 Vitamin B12 198 pg/mL (232-1245) L 05/31/22 20:00 Procalcitonin 0.15 ng/mL (0-0.5) 05/31/22 13:45 TSH 1.32 uIU/mL (0.27-4.20) 05/31/22 13:45 Urine Color Yellow (Yellow) 05/31/22 14:36 Urine Appearance Hazy (CLEAR) A 05/31/22 14:36 Urine pH 5 (5-7) 05/31/22 14:36 Ur Specific [place] 1.020 (1.005-1.030) 05/31/22 14:36 Urine Protein Neg (Negative) 05/31/22 14:36 Urine Glucose (UA) Norm (Normal) 05/31/22 14:36 Urine Ketones 1+ (Negative) H 05/31/22 14:36 Urine Blood 2+ (Negative) H 05/31/22 14:36 Urine Nitrate Negative (Negative) 05/31/22 14:36 Urine Bilirubin Neg (Negative) 05/31/22 14:36 Urine Urobilinogen Norm mg/dL (Negative) 05/31/22 14:36 Ur Leukocyte Esterase 1+ (Negative) H 05/31/22 14:36 Urine RBC 0-4 /hpf (0-2) H 05/31/22 14:36 Urine WBC 10-15 /hpf (0-5) H 05/31/22 14:36 Ur Squamous Epith Cells 5-10 /hpf (0-5) H 05/31/22 14:36 Amorphous Sediment 2+ /hpf 05/31/22 14:36 Urine Bacteria 1+ /hpf (NONE) H 05/31/22 14:36 Urine Mucus 2+ /hpf 05/31/22 14:36 Nasal Influ A H1 2009 PCR Not detected (NOT DETECT) 05/31/22 15:03 Adenovirus (PCR) Not detected (NOT DETECT) 05/31/22 15:03 C. pneumoniae DNA (PCR) Not detected (NOT DETECT) 05/31/22 15:03 Coronavirus 229E (PCR) Not detected (NOT DETECT) 05/31/22 15:03 Human Metapneumovir PCR Not detected (NOT DETECT) 05/31/22 15:03 Influenza A (H1) PCR Not detected (NOT DETECT) 05/31/22 15:03 Influenza A (H3) PCR Not detected (NOT DETECT) 05/31/22 15:03 Influenza Type A (PCR) Not detected (NOT DETECT) 05/31/22 15:03 Influenza Type B (PCR) Not detected (NOT DETECT) 05/31/22 15:03 M. pneumoniae (PCR) Not detected (NOT DETECT) 05/31/22 15:03 Parainfluenza 1 (PCR) Not detected (NOT DETECT) 05/31/22 15:03 Parainfluenza 2 (PCR) Not detected (NOT DETECT) 05/31/22 15:03 Parainfluenza 3 (PCR) Not detected (NOT DETECT) 05/31/22 15:03 Parainfluenza 4 (PCR) Not detected (NOT DETECT) 05/31/22 15:03 RSV Type A (PCR) Not detected (NOT DETECT) 05/31/22 15:03 RSV Type B (PCR) Not detected (NOT DETECT) 05/31/22 15:03 Entero/Rhino (PCR) Not detected (NOT DETECT) 05/31/22 15:03 SARS-CoV-2 (PCR) Not detected (NOT DETECT) 05/31/22 15:03 Vitals Last Vital Signs Temp 98.8 F 06/01/22 08:00 Pulse 65 06/01/22 08:00 Resp 15 06/01/22 08:00 BP 114/61 06/01/22 08:00 Pulse Ox 94 06/01/22 08:00 O2 Del Method 06/01/22 08:00 Discharge Plan Discharge Patient Disposition: Home Condition: Stable Prescriptions: New cyanocobalamin (vitamin B-12) 1,000 mcg tablet extended release 2,000 mcg PO DAILY Qty: 90 1RF Continued amlodipine 5 mg tablet 5 mg PO DAILY nitroglycerin [Nitrostat] 0.4 mg tablet, sublingual 0.4 mg SUBLINGUAL Q5M PRN (Reason: Chest Pain) Rx Instructions: do not exceed 3 doses per episode clopidogrel 75 mg tablet 75 mg PO DAILY montelukast 10 mg tablet 10 mg PO DAILY pioglitazone 45 mg tablet 30 mg PO DAILY donepezil 5 mg tablet 5 mg PO QPM Aspir-81 81 mg Tablet,Delayed Release (Dr/Ec) 81 mg PO DAILY vitamin B complex Tablet 1 tab PO DAILY Women's 50 Plus Multivitamin 400 mcg-500 mg calcium-20 mcg Tablet 1 tab PO DAILY Changed metoprolol succinate 25 mg tablet extended release 24 hr 25 mg PO DAILY Qty: 30 0RF furosemide [Lasix] 20 mg tablet 20 mg PO DAILY Qty: 180 3RF Discontinued atorvastatin 40 mg tablet 40 mg PO QPM metformin 1,000 mg tablet 1,000 mg PO BID Discharge Orders: Discharge Order (Routine); Ordered 06/01/22 Ordered By: Jose Petty Other Ambulatory Orders: Physical Therapy Eval and Treat Outpatient (Order) Timeframe: 1 Month Facility: [facility] - Location: Physical Therapy Ordered By: Jose Petty Referrals: Marco Ruiz MD [Primary Care Provider] - 06/03/22 1:30 pm Patient Instructions: Opioid Safety Discharge Attestations Time Spent in Discharge Care*: less than 30 min Quality Metrics Clinical Quality Measures [ No reported AMI, CVA or VTE this stay] Coding Level of Care Code Acute Code for Chg Fwd Diagnoses Abnormal CPK R74.8 Rhabdomyolysis M62.82 Dehydration E86.0 Hypokalemia E87.6 Transaminitis R74.01 Diabetes E11.9
[2022-06-01] MEDS: cyanocobalamin 1,000 mcg/mL SDV 1000 MCG IM (10:52)
--- NOTE | 2022-06-01 11:05 | PC.NURSE ---
waiting for PT to see patient per message from Dr. Petty.
[2022-06-01 11:24] LABS: Glucose Point of Care 187 mg/dL (70-110)
--- NOTE | 2022-06-01 11:46 | PC.NURSE ---
Dr. Petty just sent message patient can go. He sent a PT referral for patient.
--- NOTE | 2022-06-01 12:19 | PC.NURSE ---
Discussed discharge with patient and daughter. Discussed in length about metformin and called Dr. Petty about the discontinuation of the medications. Daughter was concerned. Daughter will contact the primary care physician if there is any issues with the change in metformin. Discussed follow up appointments and new medications as well. PT came in during discussion of discharge. Dr. Petty ordered an outpatient PT referral as well. All questions were answered. Daughter and patient verbalized understanding upon discharge.
[2022-06-01 12:23] VITALS: BP 114/61; PULSE 65; RESP 15; TEMP 37.1; O2SAT 94
[2022-06-03 12:44] LABS: Anti-Double Strand DNA AB <1 IU/mL; Jo-1 Antibody <1.0 NEG AI (<1.0 NEG); SM/RNP Antibodies <1.0 NEG AI (<1.0 NEG); SS-B/LA IGG <1.0 NEG AI (<1.0 NEG); Scleroderma Ab(Scl-70) Ab <1.0 NEG AI (<1.0 NEG); Ss-A/Ro Igg 7.9 POS AI (<1.0 NEG)
== END 2022-06-01 12:00 | disposition home or self-care (01) ==
LOC: ER 16:26 → MEDSURG 17:10
PROVIDERS: Admitting Provider Internal Medicine; Emergency Provider Emergency Medicine; PCP Internal Medicine; Visit Provider Internal Medicine
DX: M62.82 Rhabdomyolysis (principal); E11.9 Type 2 diabetes mellitus without complications; I25.10 Atherosclerotic heart disease of native coronary artery without angina pectoris; E78.5 Hyperlipidemia, unspecified; I10 Essential (primary) hypertension; E86.0 Dehydration; E87.6 Hypokalemia; Z79.84 Long term (current) use of oral hypoglycemic drugs; N39.0 Urinary tract infection, site not specified; Z79.02 Long term (current) use of antithrombotics/antiplatelets; Z79.82 Long term (current) use of aspirin
CPT/HCPCS: 36415; 36416; 71045; 80048; 80053; 81001; 82550; 82607; 82962; 83036; 83735; 84100; 84145; 84443; 84484; 85025; 85651; 86140; 86225; 86235; 87086; 87486; 87581; 87633; 93005; 96361; 96372; 96374; 96375; 99285; G0378; J1644; J1815; J2920; J3411; J3420; J7030

== ENCOUNTER 2022-06-09 06:00 | Outpatient (RCR) | payer MEDICARE, OTHER, SELFPAY | END 2022-06-25 23:59 | disposition home or self-care (01) | LOC: TPT 06:00 | PROVIDERS: Visit Provider Internal Medicine | DX: M62.82 Rhabdomyolysis (principal); R74.8 Abnormal levels of other serum enzymes; R53.1 Weakness; E53.8 Deficiency of other specified B group vitamins | CPT/HCPCS: 97110; 97116; 97162 ==

== ENCOUNTER 2022-06-26 06:00 | Outpatient (RCR) | payer MEDICARE, OTHER, SELFPAY | END 2022-07-21 23:59 | disposition home or self-care (01) | LOC: TPT 06:00 | PROVIDERS: Visit Provider Internal Medicine | DX: M62.82 Rhabdomyolysis (principal); R53.1 Weakness | CPT/HCPCS: 97110; 97116; 97164 ==

== ENCOUNTER 2022-11-02 06:00 | Outpatient (RCR) | payer MEDICARE, OTHER, SELFPAY | END 2022-11-25 23:59 | disposition home or self-care (01) | LOC: TPO 06:00 | PROVIDERS: Visit Provider Student in an Organized Health Care Education/Training Program | DX: Z96.641 Presence of right artificial hip joint (principal); Z74.09 Other reduced mobility | CPT/HCPCS: 97110; 97116; 97163; 97165; 97530 ==

== ENCOUNTER → 2022-11-10 15:50 | Outpatient (BNVA) | payer MEDICARE, OTHER, SELFPAY | PROVIDERS: PCP Internal Medicine Hematology & Oncology; Visit Provider Internal Medicine | DX: I25.10 Atherosclerotic heart disease of native coronary artery without angina pectoris (principal); I10 Essential (primary) hypertension; E78.5 Hyperlipidemia, unspecified; E11.9 Type 2 diabetes mellitus without complications; Z98.61 Coronary angioplasty status; Z79.84 Long term (current) use of oral hypoglycemic drugs | CPT/HCPCS: 99214 ==

== ENCOUNTER 2022-11-26 06:00 | Outpatient (RCR) | payer MEDICARE, OTHER, SELFPAY | END 2022-12-25 23:59 | disposition home or self-care (01) | LOC: TPO 06:00 | PROVIDERS: PCP Internal Medicine Hematology & Oncology; Visit Provider Student in an Organized Health Care Education/Training Program | DX: Z96.641 Presence of right artificial hip joint (principal); Z98.890 Other specified postprocedural states | CPT/HCPCS: 97110; 97116 ==

== ENCOUNTER 2022-12-26 06:00 | Outpatient (RCR) | payer MEDICARE, OTHER, SELFPAY | END 2023-01-05 23:59 | disposition home or self-care (01) | LOC: TPO 06:00 | PROVIDERS: PCP Internal Medicine Hematology & Oncology; Visit Provider Student in an Organized Health Care Education/Training Program | DX: Z96.641 Presence of right artificial hip joint (principal); Z98.890 Other specified postprocedural states | CPT/HCPCS: 97110; 97116 ==

== ENCOUNTER → 2023-05-18 16:56 | Outpatient (BNVA) | payer MEDICARE, OTHER, SELFPAY | PROVIDERS: PCP Internal Medicine Hematology & Oncology; Visit Provider Internal Medicine | DX: I10 Essential (primary) hypertension (principal); I25.10 Atherosclerotic heart disease of native coronary artery without angina pectoris | CPT/HCPCS: 36415; 80048; 83880; 99214 ==

== ENCOUNTER → 2024-02-15 15:18 | Outpatient (BNVA) | payer MEDICARE, OTHER, SELFPAY | PROVIDERS: PCP Internal Medicine Hematology & Oncology; Visit Provider Internal Medicine | DX: I25.10 Atherosclerotic heart disease of native coronary artery without angina pectoris (principal); I10 Essential (primary) hypertension; E78.5 Hyperlipidemia, unspecified; E11.9 Type 2 diabetes mellitus without complications; Z98.61 Coronary angioplasty status; Z79.84 Long term (current) use of oral hypoglycemic drugs | CPT/HCPCS: 99213 ==